=== PATIENT | female | born 1970 | race Caucasian/White ===

== ENCOUNTER 2021-01-05 09:18 | Inpatient (IN) | payer OTHER ==
[~2021-01-05] VITALS: Ht 167.6 cm; Wt 59.0 kg
[~2021-01-05 09:18] MED LIST: ASPIRIN CHEWABL81 MG PO; AUGMENTIN 875-1 EACH PO; BACTRIM DS TAB1 EACH PO; IBU800 MG PO; VISTARIL25 MG PO
[2021-01-05 11:02] LABS: HEMOGLOBIN 14.6 gm/dl (12.3-15.3); RED BLOOD COUNT 4.92 M/UL (4.00-5.10); WHITE BLOOD COUNT 8.9 K/UL (4.5-11.0)
[2021-01-05 11:33] LABS: BUN/CREATININE RATIO 22 (0-10)
[2021-01-05] MEDS ORDERED: CATAPRES 0.1MG0.1 MG PO (12:49)
[2021-01-05] MEDS ORDERED: LOTRISONE CREAM15 GM TP (12:50)
[2021-01-05] MEDS ORDERED: HYZAAR 100-251 EACH PO (12:50)
[2021-01-05] MEDS ORDERED: VISTARIL 25 MG25 MG PO (12:51)
[2021-01-06 04:38] LABS: RED BLOOD COUNT 4.43 M/UL (4.00-5.10)
[2021-01-06 04:44] LABS: HEMOGLOBIN 12.5 gm/dl (12.3-15.3); WHITE BLOOD COUNT 4.4 K/UL (4.5-11.0)
[2021-01-06 05:15] LABS: BUN/CREATININE RATIO 30 (0-10)
--- NOTE | 2021-01-06 14:47 | NUR ---
PT MOTHER CAME TOGET PT , MASKS PROVIDED FOR FAMILY
== END 2021-01-06 14:44 | disposition home or self-care (01) | DRG 917 ==
LOC: ER1 09:18 → CDU 12:36 → PROG CARE 01-06 00:13
PROVIDERS: Emergency Medicine; Physician Assistant Medical; ADMIT Internal Medicine
PROC: 8E0ZXY6 Isolation (ICD-10-PCS; principal; 2021-01-05)
DX: T40.3X1A Poisoning by methadone, accidental (unintentional), initial encounter (principal); U07.1 COVID-19; N30.00 Acute cystitis without hematuria; G93.49 Other encephalopathy; T43.621A Poisoning by amphetamines, accidental (unintentional), initial encounter; I10 Essential (primary) hypertension; F19.10 Other psychoactive substance abuse, uncomplicated; F15.129 Other stimulant abuse with intoxication, unspecified; F10.10 Alcohol abuse, uncomplicated; F41.9 Anxiety disorder, unspecified; F17.210 Nicotine dependence, cigarettes, uncomplicated; Z90.49 Acquired absence of other specified parts of digestive tract; Z98.51 Tubal ligation status
CPT/HCPCS: 36415; 70450; 71045; 80048; 80053; 80307; 81001; 82140; 82550; 82553; 82607; 83605; 83735; 83874; 84439; 84443; 84484; 84703; 85025; 85027; 87040; 87086; 93005; 96374; 99285; G0480; J0696; J1650; J2060; J7030; U0002